=== PATIENT | male | born 1955 | race Caucasian/White ===

== ENCOUNTER 2020-11-03 13:09 | Emergency (ER) | payer MEDICARE, BC ==
[2020-11-03] MEDS ORDERED: COZAAR25 M1 (13:18)
[2020-11-03] MEDS ORDERED: HYDROCHLOROTH12.5 M2 PO (13:51)
[2020-11-03] MEDS ORDERED: PANTOPRAZOLE SO40 MG PO (13:51)
[2020-11-03 14:04] LABS: BASO # 0.06 (0.02-0.10); EOS # 0.46 (0.04-0.40); EOS % 4.1 % (0.0-4.0); HEMATOCRIT 44.3 % (42.0-52.0); HEMOGLOBIN 13.9 g/dL (13.5-18.0); LYMPH# 1.79 (1.50-4.00); MEAN CELL VOLUME 88 fl (78-100); MEAN CORPUSCULAR HEMOGLOBIN 28 pg (27-31); MEAN CORPUSCULAR HGB CONC 31 g/dL (33-37); MEAN PLATELET VOLUME 9.1 fl (7.4-10.4); MONO # 0.86 (0.20-0.80); NEU # 8.09 (1.40-6.50); PLATELET COUNT 181 K/mm3 (130-400); RED BLOOD COUNT 5.02 M/mm3 (4.20-5.60); RED CELL DISTRIBUTION WIDTH 14.9 % (11.5-14.5); WHITE BLOOD COUNT 11.3 K/mm3 (4.8-10.8)
[2020-11-03 14:15] LABS: ALBUMIN 3.7 g/dL (3.4-4.8); POTASSIUM 3.9 mmol/L (3.5-5.1)
[2020-11-03 14:17] LABS: CALCIUM 9.1 mg/dL (8.3-10.5)
[2020-11-03 14:18] LABS: TOTAL PROTEIN 6.7 g/dL (6.2-8.1)
[2020-11-03 14:20] LABS: PARTIAL THROMBOPLASTIN TIME 27.8 SECONDS (21.0-32.0); PROTHROMBIN TIME 10.4 SECONDS (9.0-12.0); TOTAL BILIRUBIN 0.4 mg/dL (0.2-1.2)
[2020-11-03] MEDS ORDERED: CLEOCIN HCL300 MG PO (15:59)
[2020-11-03 16:11] VITALS: BP 197/96
== END 2020-11-03 16:10 | disposition home or self-care (01) ==
LOC: ED 13:09
PROVIDERS: Nurse Practitioner
DX: L03.116 Cellulitis of left lower limb (principal); I10 Essential (primary) hypertension; Z79.899 Other long term (current) drug therapy

== ENCOUNTER 2023-07-23 19:19 | Emergency (ER) | payer MEDICARE, BC ==
[~2023-07-23 19:19] MED LIST: CLEOCIN HCL300 MG PO; COZAAR25 M1; HYDROCHLOROTH12.5 M2 PO; PANTOPRAZOLE SO40 MG PO
[2023-07-23 20:14] LABS: BASO # 0.06 K/mm3 (0.02-0.10); EOS # 0.54 K/mm3 (0.04-0.40); EOS % 5.1 % (0.0-4.0); HEMATOCRIT 41.8 % (42.0-52.0); HEMOGLOBIN 13.4 g/dL (13.5-18.0); LYMPH# 2.52 K/mm3 (1.50-4.00); MEAN CELL VOLUME 85 fl (78-100); MEAN CORPUSCULAR HEMOGLOBIN 27 pg (27-31); MEAN CORPUSCULAR HGB CONC 32 g/dL (33-37); MEAN PLATELET VOLUME 8.8 fl (7.4-10.4); MONO # 1.02 K/mm3 (0.20-0.80); NEU # 6.41 K/mm3 (1.40-6.50); PLATELET COUNT 237 K/mm3 (130-400); RED BLOOD COUNT 4.91 M/mm3 (4.20-5.60); RED CELL DISTRIBUTION WIDTH 15.6 % (11.5-14.5); WHITE BLOOD COUNT 10.6 K/mm3 (4.8-10.8)
[2023-07-23 20:22] LABS: CALCIUM 9.2 mg/dL (8.3-10.5)
[2023-07-23 20:29] LABS: D-DIMER 0.8 mg/L FEU (0.15-0.50)
[2023-07-23] MEDS ORDERED: ZOLPIDEM TART10 MG PO (20:31)
[2023-07-23] MEDS ORDERED: AMOXICILLIN 50500 MG (20:31)
[2023-07-23] MEDS ORDERED: LISINOPRIL40 MG PO (20:32)
[2023-07-23 21:39] VITALS: BP 135/92
== END 2023-07-23 21:39 | disposition home or self-care (01) ==
LOC: ED 19:19
PROVIDERS: Family Medicine
DX: S80.11XA Contusion of right lower leg, initial encounter (principal); I87.2 Venous insufficiency (chronic) (peripheral); W01.198A Fall on same level from slipping, tripping and stumbling with subsequent striking against other object, initial encounter

== ENCOUNTER → 2023-07-27 | Outpatient (CLI) | payer MEDICARE, BC ==
[~2023-07-27] MED LIST changes: +AMOXICILLIN 50500 MG; +LISINOPRIL40 MG PO; +ZOLPIDEM TART10 MG PO
== END ==
LOC: RAD 10:05
DX: R22.42 Localized swelling, mass and lump, left lower limb (principal); M79.605 Pain in left leg